=== PATIENT | female | born 1945 | race Caucasian/White ===

== ENCOUNTER 2024-01-16 22:00 | Emergency (ER) | payer OTHER ==
[2024-01-16] MEDS: Acetaminophen 500 MG Tab PO ONE (22:40)
[2024-01-16] MEDS: Diphtheria,Pertussis(Acell),Tetanus Vaccine 0.5 ML Syringe IM ONE (22:41)
== END 2024-01-17 00:54 | disposition home or self-care (01) ==
LOC: MERGE 22:00 → FB.ED 22:00
DX: S42.252A Displaced fracture of greater tuberosity of left humerus, initial encounter for closed fracture (principal); S33.5XXA Sprain of ligaments of lumbar spine, initial encounter; S80.00XA Contusion of unspecified knee, initial encounter; I10 Essential (primary) hypertension; Z23 Encounter for immunization; W01.0XXA Fall on same level from slipping, tripping and stumbling without subsequent striking against object, initial encounter
CPT/HCPCS: 72100; 73030-LT; 73562-50; 90471; 90715; 99283-25; 99284; A9270-GY